=== PATIENT | female | born 1960 | race American Indian/Alaskan Native ===

== ENCOUNTER 2016-05-17 14:58 | Emergency (ER) | payer SELFPAY ==
[2016-05-17 21:11] VITALS: BP 115/81
--- NOTE | 2016-05-17 22:20 | Emergency Department Report ---
HPI - General Chief Complaint: Dental/Oral Time Seen by Provider: 05/17/16 21:52 - HPI HPI: Patient here complaining of pain and left sided facial swelling. She said the pain is 10 out of 10 and then going on for couple days. She says she called dentist and they did not have an appointment for her. She says she has a lot of refilling fell out. She says she had a fever of 101.0 and she's been taken TheraFlu. She is afebrile at present. Denies any nausea vomiting. Denies any cough or chest pain. ED Past Medical Hx - Past Medical History Previous Medical History?: Yes Hx Hypertension: Yes Hx Arthritis: Yes - Surgical History Past Surgical History?: Yes Hx Appendectomy: Yes Additional Surgical History: rotator cuff repair R. shoulder. ectopic . - Family History Family history: hypertension - Social History Smoking Status: Never Smoker Substance Use Type: None - Medications Home Medications: Home Medications Medication Instructions Recorded Confirmed Last Taken Type Naproxen 500 mg PO Q4-6H 01/16/14 01/17/14 Unknown History traMADol [Ultram] 50 mg PO Q6HR PRN 01/16/14 01/16/14 Unknown History Benazepril/Hydrochlorothiazide 1 tab PO DAILY #30 tablet 01/17/14 Unknown Rx [Benazepril-Hctz 20-25 mg] Cyclobenzaprine [Flexeril 10mg] 10 mg PO Q4-6H PRN 01/17/14 01/17/14 Unknown History NIFEdipine [Nifedipine ER] 30 mg PO DAILY #30 tablet.er 01/17/14 Unknown Rx Amoxicillin [Amoxicillin TAB] 875 mg PO BID #20 tablet 05/17/16 Unknown Rx HYDROcodone/APAP 5-325 [Gallion 1 each PO Q6HR PRN #15 tablet 05/17/16 Unknown Rx 5/325] ED Review of Systems ROS: Stated complaint: POSS INFECTED TOOTH/PAIN Other details as noted in HPI Comment: All other systems reviewed and negative Constitutional: denies: chills, fever ENT: dental pain. denies: ear pain, throat pain, congestion Respiratory: no symptoms reported Cardiovascular: denies: chest pain, palpitations, edema, syncope Gastrointestinal: denies: nausea, vomiting Musculoskeletal: denies: back pain, arthralgia Skin: denies: rash Neurological: denies: headache Physical Exam - Physical Exam Vital Signs: Vital Signs 05/17/16 05/17/16 15:16 21:07 Temperature 98.1 F 97.8 F Pulse Rate 90 82 Respiratory 16 20 Rate Blood Pressure 136/86 Blood Pressure 115/81 [Right] O2 Sat by Pulse 97 98 Oximetry General: This is a 55-year-old female well-nourished well-developed in no acute distress. Physical Exam: Head: Normocephalic atraumatic Mouth: Moist, no pharyngeal exudate or erythema. Uvula is midline and oral airway is patent. No gingival enlargement. Multiple dental caries. Positive dental tenderness. Positive left facial swelling. No induration or erythema on face. No peritonsillar abscesses. Positive erythema and swelling left #17,18 and 19. Neck: Supple, no C-spine tenderness, no tracheal deviation. Nontender to palpate. no adenopathy Ears: Bilateral TMs pearly mancia.bilateral EAC without any redness swelling or drainage Eyes: Bilateral pupils equal and reactive to light, bilateral EOM intact. Bilateral sclera and conjunctiva without injection. Normal accommodation Nose: Mucosa moist, normal mucosa maxillary and frontal sinus non-tender to palpate. Lungs: Clear to auscultate bilaterally no rhonchi wheezes or rales. Normal work of breathing extremity; No CCE. +2 pulses. No neurovascular compromise Cardiovascular: S1-S2, regular rate rhythm. No murmurs. Skin: clean Dry and intact no rash no lesions Psych: Normal mood and behavior ED Course Vital Signs 05/17/16 05/17/16 15:16 21:07 Temperature 98.1 F 97.8 F Pulse Rate 90 82 Respiratory 16 20 Rate Blood Pressure 136/86 Blood Pressure 115/81 [Right] O2 Sat by Pulse 97 98 Oximetry - Reevaluation(s) Reevaluation #1: 05/18/16 04:44 Patient had an uneventful ED stay ED Medical Decision Making - Medical Decision Making ED course: Patient with cellulitis and toothache. I discussed with her put her on amoxicillin and pain medication and she will need to follow-up with a dentist in 2-3 days. Patient voiced understanding of discharge instruction and discharged home with prescription for Gallion and amoxicillin. Critical care attestation.: If time is entered above; I have spent that time in minutes in the direct care of this critically ill patient, excluding procedure time. ED Disposition Clinical Impression: Oral cellulitis, Toothache, Dental caries Disposition: DISCHARGED TO HOME OR SELFCARE Is pt being admited?: No Does the pt Need Aspirin: No Condition: Stable Instructions: Cellulitis (ED), Dental Caries (ED), Toothache (ED) Prescriptions: Amoxicillin [Amoxicillin TAB] 875 mg PO BID #20 tablet HYDROcodone/APAP 5-325 [Gallion 5/325] 1 each PO Q6HR PRN #15 tablet PRN Reason: Pain Referrals: [facility] [Outside] - 2-3 Days Forms: Work/School Release Form(ED)
== END 2016-05-17 23:09 | disposition home or self-care (01) ==
LOC: ED 14:58
DX: K12.2 Cellulitis and abscess of mouth (principal); K08.89 Other specified disorders of teeth and supporting structures; K02.9 Dental caries, unspecified; I10 Essential (primary) hypertension; Z90.49 Acquired absence of other specified parts of digestive tract; Z87.39 Personal history of other diseases of the musculoskeletal system and connective tissue
CPT/HCPCS: 99282

== ENCOUNTER 2018-06-29 18:10 | Inpatient (IN) | payer MEDICARE ==
[2018-06-29] MEDS ORDERED: ASPIRIN PO ONE (18:32)
--- NOTE | 2018-06-29 18:33 | Emergency Department Report ---
Chief Complaint: Chest Pain Stated Complaint: CHEST PAIN Time Seen by Provider: 06/29/18 18:28 - HPI History of Present Illness: This is a 57 y.o. female that presents with chest pain radiating to LUE. Patient reports elevated blood pressure x 1 week. PMH of HTN, vertigo, and anemia. States she is doubling BP meds for 1 week but only took one today. Admits to weakness. Denies SOB and palpitations. - ROS Review of Systems: chest pain radiating to LUE - Exam Vital Signs: Vital Signs 06/29/18 18:32 Temperature 98.2 F Pulse Rate 84 Respiratory 16 Rate Blood Pressure 186/84 O2 Sat by Pulse 98 Oximetry MSE screening note: Focused history and physical exam performed. Due to findings the following was ordered: Labs, EKG, & CXR Main ED for further evaluation. ED Disposition for MSE Condition: Stable
[2018-06-29 19:29] LABS: Basophils # (Auto) 0.1 K/mm3 (0.0-0.1); Basophils % (Auto) 1.8 % (0.0-1.8); Eosinophils # (Auto) 0.2 K/mm3 (0.0-0.4); Eosinophils % (Auto) 2.8 % (0.0-4.3); Hematocrit 32.3 % (30.3-42.9); Hemoglobin 10.3 gm/dl (10.1-14.3); Lymphocytes # (Auto) 2.4 K/mm3 (1.2-5.4); Lymphocytes % (Auto) 33.8 % (13.4-35.0); Mean Corpuscular HGB Conc 32 % (30-34); Mean Corpuscular Volume 75 fl (79-97); Monocytes # (Auto) 0.7 K/mm3 (0.0-0.8); Monocytes % (Auto) 9.5 % (0.0-7.3); Platelet Count 513 K/mm3 (140-440); Red Blood Count 4.31 M/mm3 (3.65-5.03); Red Cell Distribution Width 19.2 % (13.2-15.2)
--- NOTE | 2018-06-29 19:49 | XRay Report ---
PROCEDURE: XR CHEST 1V AP HISTORY: Chest Pain FINDINGS: Single frontal view of the chest was acquired and compared to the prior examination of Jorge Alberto mcrae 2017. There is stable cardiomegaly. There is no evidence of congestive heart failure. There is no consolida tive pulmonary infiltrate. IMPRESSION: Stable cardiomegaly This document is electronically signed by Mitchell Bear MD., June 29 2018 07:46:51 PM ET
[2018-06-29 20:07] LABS: BUN/Creatinine Ratio 26; Blood Urea Nitrogen 13 mg/dL (7-17); Calcium 9.1 mg/dL (8.4-10.2); Hemolysis Index 1
--- NOTE | 2018-06-29 23:18 | Emergency Department Report ---
ED Chest Pain HPI - General Chief Complaint: Chest Pain Stated Complaint: CHEST PAIN Time Seen by Provider: 06/29/18 23:18 Source: patient Mode of arrival: Ambulatory Limitations: No Limitations - History of Present Illness Initial Comments: Patient is a 57-year-old female that presents emergency room with complaints of chest pain that started this morning at 9 AM. Patient states the pain is worsening. Patient states the pain is in the center of her chest and radiating to her left neck and left arm. Patient states the pain is a 8 out of 10. He s tates the pain is better with rest and worse with exertion. Patient states she's had elevated blood pressure for the past 2 weeks. Patient states she has not been seeing her doctor regular. Patient is noncompliant with her medications. Patient denies shortness of breath. MD Complaint: chest pain -: Sudden Onset: during rest Pain Location: substernal, left chest Pain Radiation: LUE, neck Severity: severe Severity scale (0 -10): 8 Quality: sharp Consistency: constant Improves With: rest Worsens With: exertion re: denies: nausea, vomting, diaphoresis, dyspnea, sense of impending doom Other Symptoms: denies: cough, fever, syncope, rash, acid taste in mouth, leg swelling, palpitations, burping Treatments Prior to Arrival: none Aspirin use within the Past 7 Days: (0) No - Related Data On Oral Contraceptives: No Home Medications Medication Instructions Recorded Confirmed Last Taken Cyclobenzaprine [Flexeril 10 MG 10 mg PO DAILY 01/17/14 01/18/17 Unknown TAB] Meloxicam [Mobic] 7.5 mg PO QDAY 01/18/17 01/18/17 Unknown Previous Rx's Medication Instructions Recorded Last Taken Type Aspirin [Aspirin BABY CHEW TAB] 81 mg PO QDAY #30 tab.chew 01/20/17 Unknown Rx AtorvaSTATin [Lipitor] 20 mg PO QHS #30 tablet 01/20/17 Unknown Rx Brompheniramine/Pseudoephed/Dm 240 ml PO TID #1 syrup 03/01/18 Unknown Rx [Bromfed Dm Cough Syrup] Meclizine [Antivert] 25 mg PO TID PRN #30 tablet 03/01/18 Unknown Rx Allergies Allergy/AdvReac Type Severity Reaction Status Date / Time No Known Allergies Allergy Unverified 05/17/16 15:18 Heart Score - HEART Score History: Moderately suspicious EKG: Non-specific Age: 45-65 Risk factors: 1-2 risk factors Troponin: < normal limit HEART Score: 4 ED Review of Systems ROS: Stated complaint: CHEST PAIN Other details as noted in HPI Constitutional: denies: chills, fever Eyes: denies: eye pain, eye discharge, vision change ENT: denies: ear pain, throat pain Respiratory: denies: cough, shortness of breath, wheezing Cardiovascular: chest pain. denies: palpitations Endocrine: no symptoms reported Gastrointestinal: denies: abdominal pain, nausea, diarrhea Genitourinary: denies: urgency, dysuria, discharge Musculoskeletal: denies: back pain, joint swelling, arthralgia Skin: denies: rash, lesions Neurological: denies: headache, weakness, paresthesias Psychiatric: denies: anxiety, depression Hematological/Lymphatic: denies: easy bleeding, easy bruising ED Past Medical Hx - Past Medical History Previous Medical History?: Yes Hx Hypertension: Yes Hx Heart Attack/AMI: No Hx Congestive Heart Failure: No Hx Diabetes: No Hx Deep Vein Thrombosis: No Hx Arthritis: Yes Hx Asthma: No Hx COPD: No Hx HIV: No - Surgical History Hx Coronary Stent: No Hx Open Heart Surgery: No Hx Pacemaker: No Hx Internal Defibrillator: No Hx Cholecystectomy: No Hx Appendectomy: Yes Hx Breast Surgery: No Additional Surgical History: rotator cuff repair R. shoulder. ectopic . . misscarriage - Family History Family history: no significant - Social History Smoking Status: Never Smoker Substance Use Type: None - Medications Home Medications: Home Medications Medication Instructions Recorded Confirmed Last Taken Type Cyclobenzaprine [Flexeril 10 MG 10 mg PO DAILY 01/17/14 01/18/17 Unknown History TAB] Meloxicam [Mobic] 7.5 mg PO QDAY 01/18/17 01/18/17 Unknown History Aspirin [Aspirin BABY CHEW TAB] 81 mg PO QDAY #30 tab.chew 01/20/17 Unknown Rx AtorvaSTATin [Lipitor] 20 mg PO QHS #30 tablet 01/20/17 Unknown Rx Brompheniramine/Pseudoephed/Dm 240 ml PO TID #1 syrup 03/01/18 Unknown Rx [Bromfed Dm Cough Syrup] Meclizine [Antivert] 25 mg PO TID PRN #30 tablet 03/01/18 Unknown Rx ED Physical Exam - General Limitations: No Limitations General appearance: alert, in no apparent distress - Head Head exam: Present: atraumatic, normocephalic - Eye Eye exam: Present: normal appearance - ENT ENT exam: Present: mucous membranes moist - Neck Neck exam: Present: normal inspection - Respiratory Respiratory exam: Present: normal lung sounds bilaterally. Absent: respiratory distress, chest wall tenderness - Cardiovascular Cardiovascular Exam: Present: regular rate, normal rhythm. Absent: systolic murmur, diastolic murmur, rubs, gallop - GI/Abdominal GI/Abdominal exam: Present: soft, normal bowel sounds - Extremities Exam Extremities exam: Present: normal inspection - Back Exam Back exam: Present: normal inspection - Neurological Exam Neurological exam: Present: alert, oriented X3 - Psychiatric Psychiatric exam: Present: normal affect, normal mood - Skin Skin exam: Present: warm, dry, intact, normal color. Absent: rash ED Course Vital Signs 06/29/18 06/30/18 18:32 01:00 Temperature 98.2 F 98.2 F Pulse Rate 84 68 Respiratory 16 16 Rate Blood Pressure 186/84 Blood Pressure 144/72 [Right] O2 Sat by Pulse 98 98 Oximetry - Reevaluation(s) Reevaluation #1: Discussed all results with patient. Patient agrees with plan of care and admission. Patient will be admitted to the hospitalist service. She will be given morphine and Lopressor for her chest pain and elevated blood pressure. 06/30/18 00:02 Patient states the pain is improving. Patient will be admitted to the hospitalist service for 06/30/18 01:35 - Consultations Consultation #1: Hospitalist consulted for admission. Hospitalist to admit patient. Hospitalist to assume care patient. Bridge orders placed 06/30/18 00:02 LENORA score - Lenora Score Age > 65: (0) No Aspirin use within the Past 7 Days: (0) No 3 or more CAD Risk Factors: (0) No 2 or more Angina events in past 24 hrs: (1) Yes Known CAD with more than 50% Stenosis: (0) No Elevated Cardiac Markers: (0) No ST Deviation Greater than 0.5mm: (0) No LENORA Score: 1 ED Medical Decision Making - Lab Data Result diagrams: 06/29/18 18:48 06/29/18 18:48 - EKG Data -: EKG Interpreted by Me EKG shows normal: sinus rhythm, axis, intervals, QRS complexes, ST-T waves Rate: normal - Radiology Data Radiology results: report reviewed PROCEDURE: XR CHEST 1V AP HISTORY: Chest Pain FINDINGS: Single frontal view of the chest was acquired and compared to the prior examination of March 01, 2018. There is stable cardiomegaly. There is no evidence of congestive heart failure. There is no consolidative pulmonary infiltrate. IMPRESSION: Stable cardiomegaly - Medical Decision Making Patient is a 57-year-old female that presents emergency room with complaints of chest pain. Patient's initial cardiac workup was negative. Patient's EKG is negative. Patient's chest x-ray is negative for heart or megaly. Patient was admitted to the hospitalist service. Patient agrees with plan of care. - Differential Diagnosis chest pain. ACS. Critical Care Time: Yes Critical care attestation.: If time is entered above; I have spent that time in minutes in the direct care of this critically ill patient, excluding procedure time. Critical Care Time: 35 minutes ED Disposition Clinical Impression: Noncompliance Hypertension Qualifiers: Hypertension type: essential hypertension Qualified Code(s): I10 - Essential (primary) hypertension Chest pain Qualifiers: Chest pain type: unspecified Qualified Code(s): R07.9 - Chest pain, unspecified Disposition: OP ADMIT IP TO THIS HOSP Is pt being admited?: Yes Does the pt Need Aspirin: No Condition: Critical Time of Disposition: 00:06
[2018-06-30] MEDS ORDERED: LOPRESSOR IV ONE ×2 (00:06→00:56)
[2018-06-30] MEDS ORDERED: MORPHINE IV ONE (00:06)
[2018-06-30] MEDS ORDERED: MORPHINE ONE (00:57)
[2018-06-30] MEDS ORDERED: MORPHINE IV PRN (01:19)
[2018-06-30] MEDS ORDERED: ZOFRAN IV PRN (01:19)
[2018-06-30] MEDS ORDERED: TYLENOL PO PRN (01:19)
[2018-06-30] MEDS ORDERED: NITROSTAT SL PRN (01:20)
[2018-06-30] MEDS: NITRO-BID 2% TP SCH ×4 (03:34→14:22)
[2018-06-30 06:35] LABS: Creatine Kinase MB 1.1 ng/mL (0.0-4.0)
[2018-06-30] MEDS ORDERED: LEXISCAN IV ONE ×2 (08:07→08:15)
--- NOTE | 2018-06-30 09:11 | History and Physical Report ---
CHIEF COMPLAINT: Chest pain. HISTORY OF PRESENT ILLNESS: The patient is a 57-year-old female who started complaining about chest pain, which started in the morning and progressively got worse. Pain is in the midsternal precordial area and radiating to the left side of the neck and left arm. The patient said that the pain is better with rest and worse with exertion. The patient denies a history of shortness of breath, denies history of nausea and vomiting and said that there is associated diaphoresis and weakness. PAST MEDICAL HISTORY: Pertinent for hypertension and arthritis and the patient is noncompliant with medication. PAST SURGICAL HISTORY: Pertinent for appendectomy, rotator cuff surgery repair on the right shoulder, ectopic and miscarriage with D and C. MEDICATIONS: The patient is on Flexeril 10 mg by mouth daily, meloxicam 7.5 mg by mouth daily, aspirin 81 mg p.o. daily, atorvastatin 20 mg by mouth at bedtime, brompheniramine/pseudoephedrine or Bromfed DM cough syrup 240 mL p.o. 3 times daily, meclizine or Antivert 25 mg by mouth 3 times daily as needed for vertigo. ALLERGIES: There are no known drug allergies. REVIEW OF SYSTEMS: CONSTITUTIONAL: There is no fever, no chills. Diaphoresis is present. HEENT: There is no headache or sore throat. CARDIOVASCULAR SYSTEM: There is chest pain, but no orthopnea. RESPIRATORY SYSTEM: There is no shortness of breath or cough. GASTROINTESTINAL SYSTEM: There is no nausea, no vomiting, no abdominal pain, diarrhea or constipation. NEUROLOGICAL SYSTEM: There is no numbness, no dizziness, no altered mental status. MUSCULOSKELETAL SYSTEM: There is no joint pain or swelling. DERMATOLOGICAL SYSTEM: There is no skin rash or itching. GENITOURINARY SYSTEM: There is no dysuria, hematuria or flank pain. Rest of system review is normal. PHYSICAL EXAMINATION: GENERAL: At the time of my exam, the patient was found to be alert, oriented x 3 and not in acute distress. VITAL SIGNS: Initial vital signs at the time of presentation showed temperature of 98.2 degrees Fahrenheit, pulse of 84, respirations 16, blood pressure 186/84 which later came down to 144/72, O2 sat of 98% on room air. HEENT: Showed pupils to be equal, round, and reactive to light and accommodating. Extraocular muscles are intact. NECK: Supple with no JVD or carotid bruit. CARDIOVASCULAR SYSTEM: Showed normal first and second heart murmur heard with no gallops. RESPIRATORY SYSTEM: Showed good air entry on both sides of the lungs with no abnormal breath sounds. GASTROINTESTINAL SYSTEM: Showed abdomen to be full, nontender with no organomegaly or rigidity. NEUROLOGICAL: Showed no focal deficit. MUSCULOSKELETAL SYSTEM: Showed no joint swelling. DERMATOLOGICAL SYSTEM: Showed no skin rash. GENITOURINARY SYSTEM: Showing no costovertebral angle tenderness. PERTINENT LABORATORY AND IMAGING STUDIES: The patient had chest x-ray done that shows stable cardiomegaly. The patient's lab results show CBC with normal white count, normal hemoglobin and normal hematocrit with a slightly elevated platelet count of 513,000. CBC differential showed high monocyte count of 9.5. The patient's chemistry was unremarkable. Troponin level came back normal. DIAGNOSIS: Chest pain. PLAN OF CARE: 1. The patient will be admitted to telemetry. 2. The patient will have serial cardiac enzymes involving troponin, total CK, and CK-MB checked q.6 hours x 2 more levels. 3. The patient will remain n.p.o. for Lexiscan stress test this morning. 4. The patient will be on aspirin 325 mg by mouth daily and will be on IV morphine 2 mg every 3 hours as needed for pain and IV Zofran 4 mg every 8 hours as needed for nausea and vomiting. 5. The patient will be on nitro paste half inch to anterior chest wall q.i.d. and Nitrostat 0.4 mg sublingual every 5 minutes as needed for pain. 6. The patient will be on oxygen by nasal cannula at 2 liters per minute. JOB# [id number] OCN/NTS
[2018-06-30] MEDS ORDERED: ASPIRIN PO SCH (10:00)
[2018-06-30 11:18] VITALS: BP 116/68
--- NOTE | 2018-06-30 12:11 | Treadmill Report ---
LEXISCAN STRESS TEST REPORT REASON FOR STUDY: Chest pain. STRESS TEST PROTOCOL: The patient received 0.4 mg of Lexiscan intravenously over 10 seconds. Tc-99m Tetrofosmin was subsequently injected. Baseline EKG, normal sinus rhythm with LVH. Lexiscan EKG, no ischemic changes. No chest pain. No arrhythmias. IMPRESSION: Electrocardiographically negative stress test. Nuclear imaging report to follow. JOB# [id number] AGO/NTS
--- NOTE | 2018-06-30 14:50 | Discharge Summary ---
Providers - Providers Date of Admission: 06/30/18 00:07 Date of discharge: 06/30/18 Attending physician: MARILYN SIERRA Primary care physician: CARLOS RODRIGUEZ Hospitalization Reason for admission: chest pain Condition: Good Pertinent studies: Stress test: fixed small inferoapical defect w/o any significant motion abnormality with preserved Ef. CXR: Stable cardiomegaly Hospital course: Patient is a 57-year-old female that presents emergency room with complaints of chest pain that started in the morning at 9 AM. her initial CE were normal, CXR showed stable cardiomegaly, stress test didnot show any reversible ischemia. Patient was then discharged home in stable condition with outpt followup. Discharge diagnosis: Chest pain, atypical, likely from GERD, negative stress test HLD, on statin Disposition: DC- TO HOME OR SELFCARE Time spent for discharge: 34 minutes Core Measure Documentation - Palliative Care Palliative Care/ Comfort Measures: Not Applicable - Core Measures Any of the following diagnoses?: none Exam - Constitutional Vitals: Temp Pulse Resp BP Pulse Ox 98.0 F 79 18 116/68 100 06/30/18 11:17 06/30/18 11:17 06/30/18 11:17 06/30/18 11:17 06/30/18 11:17 General appearance: Present: no acute distress, well-nourished - EENT Eyes: Present: PERRL ENT: hearing intact, clear oral mucosa - Neck Neck: Present: supple, normal ROM - Respiratory Respiratory effort: normal Respiratory: bilateral: CTA - Cardiovascular Heart Sounds: Present: S1 & S2. Absent: rub, click - Extremities Extremities: pulses symmetrical, No edema Peripheral Pulses: within normal limits - Abdominal General gastrointestinal: Present: soft, non-tender, non-distended, normal bowel sounds - Integumentary Integumentary: Present: clear, warm, dry - Musculoskeletal Musculoskeletal: gait normal, strength equal bilaterally - Psychiatric Psychiatric: appropriate mood/affect, intact judgment & insight - Neurologic Neurologic: CNII-XII intact, moves all extremities Plan Activity: advance as tolerated Weight Bearing Status: Weight Bear as Tolerated Diet: low fat, low salt Follow up with: CARLOS RODRIGUEZ MD [Primary Care Provider] - 7 Days Prescriptions: Pantoprazole [Protonix] 40 mg PO QDAY #30 tablet
[2018-06-30 14:54] LABS: Creatine Kinase MB 1.1 ng/mL (0.0-4.0)
--- NOTE | 2018-06-30 16:08 | Treadmill Report ---
THALLIUM REPORT REASON FOR STUDY: Chest pain. IMAGING PROTOCOL: The patient received 10.7 mCi of technetium-99m Tetrofosmin for rest imaging, and 31.08 mCi of Tc-99m Tetrofosmin for stress imaging. Imaging for all procedures was completed 30-90 minutes following the initial injection of Technetium 99m Tetrofosmin. SPECT imaging in the 180 degree arc was performed in the right anterior oblique projection. Computerized reconstruction of the images was performed for analysis. NUCLEAR IMAGING RESULTS: Technically limited study due to soft tissue attenuation artifact. Normal left ventricular cavity size with no change from stress to rest. Distribution of radionuclide within the left ventricle revealed a small area of photo-induction involving the inferoapical region. The degree of photo-induction is mild. Rest imaging showed partial improvement in this defect. Gated SPECT imaging revealed normal global LV systolic function with no significant wall motion abnormalities. The calculated left ventricular ejection fraction is 69%. IMPRESSION: Technically limited study. Small, partially reversible inferoapical defect. Normal global LV systolic function with no significant wall motion abnormalities. EF 69%. These findings suggest minimal ischemia in the left anterior descending coronary artery territory. A small area of prior infarction in the same territory cannot be excluded. Overall, significant amount of ischemia is not suggested. [facility]# [id number] SHAWN/INNA ANGELES
== END 2018-06-30 15:30 | disposition home or self-care (01) | DRG 392 ==
LOC: ED 18:10 → 4A 06-30 00:07
PROVIDERS: ADMIT Internal Medicine; ATTEND Internal Medicine
DX: K21.9 Gastro-esophageal reflux disease without esophagitis (principal); I10 Essential (primary) hypertension; E78.5 Hyperlipidemia, unspecified; Z79.82 Long term (current) use of aspirin; Z79.899 Other long term (current) drug therapy; Z90.49 Acquired absence of other specified parts of digestive tract; Z91.19 Patient's noncompliance with other medical treatment and regimen
CPT/HCPCS: 36415; 71045; 78452; 80048; 82550; 82553; 84484; 85025; 93005; 93010; 93017; G0378; A9502; J2270; J2785

== ENCOUNTER 2019-07-04 10:08 | Emergency (ER) | payer MEDICARE ==
--- NOTE | 2019-07-04 11:33 | Event Note ---
ED Screening Note Date of service: 07/04/19 Time: 11:31 ED Screening Note: 58 y/o female with generalized weaknessand pain in right shoulder. This initial assessment/diagnostic orders/clinical plan/treatment(s) is/are subject to change based on patients health status, clinical progression and re- assessment by fellow clinical providers in the ED. Further treatment and workup at subsequent clinical providers discretion. Patient/guardian urged not to elope from the ED as their condition may be serious if not clinically assessed and managed. Initial orders include:
[2019-07-04] MEDS ORDERED: ACETAMINOPHEN 325 MG TAB PO ONE (12:28)
--- NOTE | 2019-07-04 13:03 | XRay Report ---
CHEST 2 VIEWS INDICATION / CLINICAL INFORMATION: Weakness. Acute shortness of breath for 6 hours. COMPARISON: One view of the chest from 06/29/2018. FINDINGS: SUPPORT DEVICES: None. HEART / MEDIASTINUM: Stable. LUNGS / PLEURA: Left basilar opacities likely represent atelectasis/scarring. The lungs are otherwise clear. No significant pleural effusion. No pneumothorax. ADDITIONAL FINDINGS: No significant additional findings. IMPRESSION: 1. No acute abnormality of the chest. 2. Additional findings as above. Signer Name: Yehuda Prater MD Signed: 07/04/2019 12:59 PM Workstation Name: [id number]
[2019-07-04 14:08] LABS: Hematocrit 33.1 % (30.3-42.9); Hemoglobin 10.5 gm/dl (10.1-14.3); Mean Corpuscular HGB Conc 32 % (30-34); Mean Corpuscular Volume 78 fl (79-97); Platelet Count 295 K/mm3 (140-440); Red Blood Count 4.26 M/mm3 (3.65-5.03); Red Cell Distribution Width 18.3 % (13.2-15.2)
--- NOTE | 2019-07-04 14:13 | Emergency Department Report ---
ED General Adult HPI - General Chief complaint: Weakness Stated complaint: WEAK,LIGHT HEADED/HBP/N Time Seen by Provider: 07/04/19 11:31 Source: patient, RN notes reviewed, old records reviewed Mode of arrival: Ambulatory Limitations: No Limitations - History of Present Illness Initial comments: The patient is a 58-year-old female. She has a history of hypertension, arthritis, chronic pain syndrome, hyperlipidemia, GERD, had a nuclear stress test at this hospital June 2018, which was essentially negative for significant ischemic findings. She had multiple negative troponins. Today, the patient presents to the ER with a complaint of lightheadedness, shortness of breath, right-sided shoulder pain, nausea, malaise and fatigue. Her symptoms have started within the past 24 hours. The right shoulder pain is throbbing and aching, does not radiate anywhere, and is chronic. She has known chronic arthritis. She denies chest pain. She cannot describe her shortness of breath. She is not sure if it is exertional or not. She denies vomiting, diaphoresis, DVT and pulmonary embolism risk factors. There is no complaint of headache, neck pain, chest pain, abdominal pain, irritative/obstructive urinary symptoms. She also endorses nonspecific right-sided flank discomfort. There is no focal extremity weakness and/or numbness. She ran out of her antihypertensive medication. -: Gradual, days(s) Location: back Severity scale (0 -10): 7 Consistency: constant, other Improves with: other Worsens with: other Associated Symptoms: other - Related Data Home Medications Medication Instructions Recorded Confirmed Last Taken Meloxicam [Mobic] 7.5 mg PO QDAY 01/18/17 06/30/18 Unknown Previous Rx's Medication Instructions Recorded Last Taken Type Aspirin [Aspirin BABY CHEW TAB] 81 mg PO QDAY #30 tab.chew 01/20/17 Unknown Rx AtorvaSTATin [Lipitor] 20 mg PO QHS #30 tablet 01/20/17 Unknown Rx Meclizine [Antivert] 25 mg PO TID PRN #30 tablet 03/01/18 Unknown Rx Pantoprazole [Protonix] 40 mg PO QDAY #30 tablet 06/30/18 Unknown Rx Amlodipine Besylate [Norvasc] 5 mg PO QDAY #30 tablet 07/04/19 Unknown Rx Aspirin [Aspirin BABY CHEW TAB] 162 mg PO QDAY #60 tab.chew 07/04/19 Unknown Rx Allergies Allergy/AdvReac Type Severity Reaction Status Date / Time No Known Allergies Allergy Unverified 05/17/16 15:18 ED Review of Systems ROS: Stated complaint: WEAK,LIGHT HEADED/HBP/N Other details as noted in HPI Constitutional: malaise. denies: fever Eyes: denies: eye discharge ENT: denies: congestion Respiratory: shortness of breath. denies: wheezing Cardiovascular: other (Near syncope). denies: chest pain Gastrointestinal: nausea. denies: vomiting Genitourinary: denies: dysuria Musculoskeletal: back pain Skin: denies: lesions Neurological: weakness Psychiatric: as per HPI Hematological/Lymphatic: as per HPI ED Past Medical Hx - Past Medical History Hx Hypertension: Yes Hx Heart Attack/AMI: No Hx Congestive Heart Failure: No Hx Diabetes: No Hx Deep Vein Thrombosis: No Hx Arthritis: Yes Hx Asthma: No Hx COPD: No Hx HIV: No - Surgical History Hx Coronary Stent: No Hx Open Heart Surgery: No Hx Pacemaker: No Hx Internal Defibrillator: No Hx Cholecystectomy: No Hx Appendectomy: Yes Hx Breast Surgery: No Additional Surgical History: rotator cuff repair R. shoulder. ectopic . . misscarriage - Social History Smoking Status: Never Smoker Substance Use Type: None - Medications Home Medications: Home Medications Medication Instructions Recorded Confirmed Last Taken Type Meloxicam [Mobic] 7.5 mg PO QDAY 01/18/17 06/30/18 Unknown History Aspirin [Aspirin BABY CHEW TAB] 81 mg PO QDAY #30 tab.chew 01/20/17 06/30/18 Unknown Rx AtorvaSTATin [Lipitor] 20 mg PO QHS #30 tablet 01/20/17 06/30/18 Unknown Rx Meclizine [Antivert] 25 mg PO TID PRN #30 tablet 03/01/18 06/30/18 Unknown Rx Pantoprazole [Protonix] 40 mg PO QDAY #30 tablet 06/30/18 Unknown Rx Amlodipine Besylate [Norvasc] 5 mg PO QDAY #30 tablet 07/04/19 Unknown Rx Aspirin [Aspirin BABY CHEW TAB] 162 mg PO QDAY #60 tab.chew 07/04/19 Unknown Rx ED Physical Exam - General Limitations: No Limitations General appearance: alert, in no apparent distress - Head Head exam: Present: atraumatic, normocephalic - Eye Eye exam: Present: normal appearance, PERRL, EOMI. Absent: nystagmus - ENT ENT exam: Present: normal exam, normal orophraynx, mucous membranes moist, normal external ear exam - Neck Neck exam: Present: normal inspection, full ROM. Absent: tenderness, meningismus - Respiratory Respiratory exam: Present: normal lung sounds bilaterally. Absent: respiratory distress - Cardiovascular Cardiovascular Exam: Present: regular rate, normal rhythm, normal heart sounds. Absent: bradycardia, tachycardia, irregular rhythm, systolic murmur, diastolic murmur, rubs, gallop - GI/Abdominal GI/Abdominal exam: Present: soft, normal bowel sounds. Absent: distended, tenderness, guarding, rebound, rigid, pulsatile mass - Extremities Exam Extremities exam: Present: normal inspection, full ROM, tenderness (There is reproducible right shoulder tenderness. There is no redness, pus or streaking. Full active and passive range of motion noted in the right shoulder), other (2+ pulses noted in the bilateral upper and lower extremities. There is no palpable cord. negative Homans sign. Muscular compartments are soft. The pelvis is stable.). Absent: pedal edema, calf tenderness - Back Exam Back exam: Present: normal inspection, full ROM. Absent: tenderness, CVA tenderness (R), CVA tenderness (L), paraspinal tenderness, vertebral tenderness - Neurological Exam Neurological exam: Present: alert, oriented X3, other (There is no facial droop. The tongue is midline. Extraocular movements are intact bilaterally. There is 5 out of 5 strength in bilateral upper and lower extremities. Sensation is intact to light touch bilateral upper and lower extremities. There is no past- pointing. There is no pronator drift. There is normal bmew-eo-ncel.). Absent: motor sensory deficit - Psychiatric Psychiatric exam: Present: normal affect, normal mood - Skin Skin exam: Present: warm, dry, intact, normal color. Absent: rash ED Course Vital Signs 07/04/19 07/04/19 07/04/19 10:31 11:26 12:30 Temperature 99.5 F 99.5 F Pulse Rate 85 83 71 Respiratory 20 20 19 Rate Blood Pressure 195/94 195/94 203/96 Blood Pressure [Left] O2 Sat by Pulse 97 97 100 Oximetry 07/04/19 07/04/19 07/04/19 13:10 13:13 13:16 Temperature Pulse Rate 61 73 75 Respiratory 14 17 13 Rate Blood Pressure 173/66 196/88 Blood Pressure 196/88 [Left] O2 Sat by Pulse 99 99 100 Oximetry 07/04/19 07/04/19 07/04/19 13:30 13:46 14:00 Temperature Pulse Rate 69 64 59 L Respiratory 13 16 15 Rate Blood Pressure 177/87 169/82 185/92 Blood Pressure [Left] O2 Sat by Pulse 100 100 100 Oximetry 07/04/19 07/04/19 07/04/19 14:16 14:30 14:46 Temperature Pulse Rate 60 71 86 Respiratory 19 18 13 Rate Blood Pressure 173/91 166/84 171/88 Blood Pressure [Left] O2 Sat by Pulse 100 99 98 Oximetry 07/04/19 07/04/19 07/04/19 15:00 15:23 15:30 Temperature Pulse Rate 61 147 H 63 Respiratory 18 10 L Rate Blood Pressure 171/88 147/74 164/83 Blood Pressure [Left] O2 Sat by Pulse 98 100 Oximetry 07/04/19 07/04/19 07/04/19 15:45 16:00 16:15 Temperature Pulse Rate Respiratory Rate Blood Pressure 162/84 165/91 155/79 Blood Pressure [Left] O2 Sat by Pulse 100 100 99 Oximetry 07/04/19 07/04/19 07/04/19 16:30 16:45 17:00 Temperature Pulse Rate 62 66 Respiratory 22 20 Rate Blood Pressure 155/79 147/74 138/71 Blood Pressure [Left] O2 Sat by Pulse 98 100 100 Oximetry 07/04/19 17:12 Temperature Pulse Rate 63 Respiratory 16 Rate Blood Pressure Blood Pressure 138/71 [Left] O2 Sat by Pulse 99 Oximetry - Reevaluation(s) Reevaluation #1: 07/04/19 15:04 Differential diagnosis, including but not limited to: Orthostasis, vagal event, structural cardiac disease, pulmonary embolism, shoulder arthritis, acute coronary syndrome, viral syndrome Assessment and plan: 58-year-old female, not currently tachypneic, tachycardic or hypoxic, reports no pulmonary embolism or DVT risk factors, low risk by Wells criteria, EKG appears to be unchanged from prior, d-dimer is negative, initial screening laboratory studies unremarkable. At the moment, she is resting comfortably in her stretcher, playing on her cellular phone, and in no acute distress. Repeat troponin, repeat EKG pending. We will treat her symptoms. Reevaluation #2: 07/04/19 15:05 X-ray the chest is unremarkable, unchanged from prior x-ray, furthermore, the patient does not have any pulmonary findings. Reevaluation #3: 07/04/19 15:06 care will be transferred to Dr Jj Mitchell to follow up on ua, troponin repeat ekg and vitals If no acute abnormalities noted, would consider the patient medically suitable to follow-up as an outpatient. Reevaluation #4: 07/04/19 15:12 Patient resting comfortably on her stretcher, and in no acute distress, heart rate 65 bpm, blood pressure 149/75, patient noted to be playing Candy crush on her cellular phone ED Medical Decision Making - Lab Data Result diagrams: 07/04/19 13:47 07/04/19 13:47 Vital Signs 07/04/19 07/04/19 11:26 13:13 Temperature 99.5 F Pulse Rate 83 73 Respiratory 20 17 Rate Blood Pressure 195/94 Blood Pressure 196/88 [Left] O2 Sat by Pulse 97 99 Oximetry Lab Results 07/04/19 07/04/19 07/04/19 Range/Units 13:47 13:47 13:47 WBC 4.1 L (4.5-11.0) K/mm3 RBC 4.26 (3.65-5.03) M/mm3 Hgb 10.5 (10.1-14.3) gm/dl Hct 33.1 (30.3-42.9) % MCV 78 L (79-97) fl MCH 25 L (28-32) pg MCHC 32 (30-34) % RDW 18.3 H (13.2-15.2) % Plt Count 295 (140-440) K/mm3 [place] % ([employer]) T[employer] Installer PT 12.7 (12.2-14.9) Sec. INR 0.94 (0.87-1.13) D-Dimer 157.71 (0-234) ng/mlDDU Sodium 137 (137-145) mmol/L Potassium 4.2 (3.6-5.0) mmol/L Chloride 100.8 (98-107) mmol/L Carbon Dioxide 23 (22-30) mmol/L Anion Gap 17 mmol/L BUN 13 (7-17) mg/dL Creatinine 0.6 L (0.7-1.2) mg/dL Estimated GFR > 60 ml/min BUN/Creatinine Ratio 22 % Glucose 93 (65-100) mg/dL Calcium 9.3 (8.4-10.2) mg/dL Magnesium 2.20 (1.7-2.3) mg/dL Total Bilirubin < 0.20 (0.1-1.2) mg/dL AST 19 (5-40) units/L ALT 10 (7-56) units/L Alkaline Phosphatase 91 (35-129) units/L Total Creatine Kinase 67 (30-135) units/L CK-MB (CK-2) < 1.0 (0.0-4.0) ng/mL Troponin T < 0.010 (0.00-0.029) ng/mL Total Protein 6.9 (6.3-8.2) g/dL Albumin 4.1 (3.9-5) g/dL Albumin/Globulin Ratio 1.5 % Lipase 59 (13-60) units/L - EKG Data -: EKG Interpreted by Wy EKG shows normal: sinus rhythm Rate: normal - EKG Data 07/04/19 15:05 The EKG today is unchanged from prior EKG. She has a sinus rate of 61 bpm, normal axis, QTC within normal limits, the EKG is unchanged from prior EKG, it is not a STEMI - Radiology Data Radiology results: report reviewed, image reviewed Print Report Referring Physician: GERA CHANEL Patient Name: JESS ROSAS Date of : 1960 Sex: Female Report Date: 2019-07-04 Report Status: Finalized Findings [facility] [address] [place] [address] XRay Report Signed Patient: JESS ROSAS MR#: [id number] : 1960 Acct:[id number] Age/Sex: 58 / F ADM Date: 07/04/19 Loc: ED Attending Dr: Order ing Physician: GERA CHANEL MD Date of Service: 07/04/19 Procedure(s): XR chest routine 2V Accession Number(s): [id number] cc: GERA CHANEL MD Fluoro Time In Minutes: CHEST 2 VIEWS INDICATION / CLINICAL INFORMATION: Weakness. Acute shortness of breath for 6 hours. COMPARISON: One view of the chest from 06/29/2018. FINDINGS: SUPPORT DEVICES: None. HEART / MEDIASTINUM: Stable. LUNGS / PLEURA: Left basilar opacities likely represent atelectasis/scarring. The lungs are otherwise clear. No significant pleural effusion. No pneumothorax. ADDITIONAL FINDINGS: No significant additional findings. IMPRESSION: 1. No acute abnormality of the chest. 2. Additional findings as above. Signer Name: Yehuda Prater MD Signed: 07/04/2019 12:59 PM Workstation Name: [id number] Transcribed By: [place] Dictated By: Yehuda Prater MD Electronically Authenticated By: Yehuda Prater MD Signed Date/Time: 07/04/19 1259 DD/ 1257 Critical care attestation.: If time is entered above; I have spent that time in minutes in the direct care of this critically ill patient, excluding procedure time. ED Disposition Clinical Impression: Elevated blood pressure reading, Lightheadedness, History of dyspnea, Chronic right shoulder pain Disposition: DC-01 TO HOME OR SELFCARE Is pt being admited?: No Does the pt Need Aspirin: No Condition: Stable Additional Instructions: Take the medications as prescribed and directed. Make certain to drink at least 3 to 4 cups of water per day. Avoid consumption of alcohol and sedating medications. Recommend that patient follow-up with a primary care doctor or gas golf cart repairer within the next 5 to 7 days. Please return to the emergency room right away with new, worsened or different symptoms, or symptoms not present on the initial emergency room evaluation. Please note that patient was found to have high blood pressure while here in the emergency room. Long-term complications of hypertension and elevated blood pressure include stroke, heart attack, disability, paralysis, loss of quality of life. Therefore, it is very important to control blood pressure through diet, exercise, physical activity, and medications as prescribed. Prescriptions: Aspirin [Aspirin BABY CHEW TAB] 162 mg PO QDAY #60 tab.chew Amlodipine Besylate [Norvasc] 5 mg PO QDAY #30 tablet Referrals: CARLOS RODRIGUEZ MD [Staff Physician] - 7-10 days [facility] [Provider Group] - 7-10 days
[2019-07-04 14:27] LABS: INR 0.94 (0.87-1.13)
[2019-07-04 14:32] LABS: Creatine Kinase MB < 1.0 ng/mL (0.0-4.0)
[2019-07-04 14:33] LABS: Alanine Aminotransferase 10 units/L (7-56); Albumin 4.1 g/dL (3.9-5); BUN/Creatinine Ratio 22; Blood Urea Nitrogen 13 mg/dL (7-17); Calcium 9.3 mg/dL (8.4-10.2); Hemolysis Index 0
[2019-07-04] MEDS ORDERED: amLODIPine 5 MG TAB PO ONE (14:34)
[2019-07-04] MEDS ORDERED: IBUPROFEN 600 MG TAB PO ONE (14:34)
[2019-07-04 15:01] LABS: Basophils % (Manual) 0 % (0.0-1.8); Platelet Estimate Consistent w Auto; Total Cells Counted 100
[2019-07-04 15:55] LABS: Bilirubin,Urine NEG (Negative); Blood,Urine NEG (Negative); Color,Urine Yellow (Yellow); Mucus,Urine FEW /HPF; Urobilinogen,Urine < 2.0 mg/dL (<2.0)
[2019-07-04 17:06] VITALS: BP 138/71
== END 2019-07-04 17:12 | disposition home or self-care (01) ==
LOC: ED 10:08
DX: R42 Dizziness and giddiness (principal); M25.511 Pain in right shoulder; G89.29 Other chronic pain; R06.00 Dyspnea, unspecified; I10 Essential (primary) hypertension; M19.91 Primary osteoarthritis, unspecified site; Z98.890 Other specified postprocedural states; Z90.49 Acquired absence of other specified parts of digestive tract; Z79.899 Other long term (current) drug therapy
CPT/HCPCS: 36415; 71046; 80053; 81001; 82550; 82553; 83690; 83735; 84443; 84484; 85007; 85025; 85379; 85610; 93005; 93010

== ENCOUNTER 2020-11-30 17:57 | Emergency (ER) | payer MEDICARE ==
[2020-11-30 18:01] VITALS: BP 174/88
== END 2020-11-30 22:00 | disposition left against medical advice (07) ==
LOC: ED 17:57
DX: R06.02 Shortness of breath (principal); Z53.21 Procedure and treatment not carried out due to patient leaving prior to being seen by health care provider

== ENCOUNTER 2021-07-08 09:11 | Emergency (ER) | payer MEDICARE ==
[2021-07-08] MEDS ORDERED: ASPIRIN 325 MG TAB PO ONE (09:28)
--- NOTE | 2021-07-08 09:30 | Event Note ---
ED Screening Note Date of service: 07/08/21 Time: 09:28 ED Screening Note: Pleasant 58-year-old female presents emerged department chief complaint of left- sided chest pain that has been ongoing since last night. She describes it as pressure reports right sided arm pain. She denies any rating pain. She has past medical history hypertension, hyperlipidemia and diabetes. She does report family history mother and father with previous CAD. This initial assessment/diagnostic orders/clinical plan/treatment(s) is/are subject to change based on patients health status, clinical progression and re- assessment by fellow clinical providers in the ED. Further treatment and workup at subsequent clinical providers discretion. Patient/guardian urged not to elope from the ED as their condition may be serious if not clinically assessed and managed. Initial orders include: CBC, CMP, troponin x2, chest x-ray, EKG
--- NOTE | 2021-07-08 09:41 | Emergency Department Report ---
ED Chest Pain HPI - General Chief Complaint: Chest Pain Stated Complaint: CHEST PAIN LIGHT HEADED Time Seen by Provider: 07/08/21 09:40 Source: patient Mode of arrival: Ambulatory Limitations: No Limitations - History of Present Illness Initial Comments: This pleasant 58-year-old female presents emerged department chief complaint of left-sided chest pain, right arm pain and lightheadedness that started early last night. She reports the pain is aggravated by palpation and movement. She denies any alleviating factors other than immobility. She has past medical history hypertension. She does have family history of her maternal grandfather having heart attack in his late 50s. She denies any history of diabetes, hypertension, tobacco use, thromboembolic disease. She denies associated fever, chills, night sweats, headache, dizziness, blurry vision, nausea,, diarrhea, weakness or any other associated symptoms. She denies any exertional symptoms. Severity scale (0 -10): 9 - Related Data Home Medications Medication Instructions Recorded Confirmed Last Taken Meloxicam [Mobic] 7.5 mg PO QDAY 01/18/17 06/30/18 Unknown Previous Rx's Medication Instructions Recorded Last Taken Type Aspirin [Aspirin BABY CHEW TAB] 81 mg PO QDAY #30 tab.chew 01/20/17 Unknown Rx AtorvaSTATin [Lipitor] 20 mg PO QHS #30 tablet 01/20/17 Unknown Rx Meclizine [Antivert] 25 mg PO TID PRN #30 tablet 03/01/18 Unknown Rx Pantoprazole [Protonix] 40 mg PO QDAY #30 tablet 06/30/18 Unknown Rx Amlodipine Besylate [Norvasc] 5 mg PO QDAY #30 tablet 07/04/19 Unknown Rx Aspirin [Aspirin BABY CHEW TAB] 162 mg PO QDAY #60 tab.chew 07/04/19 Unknown Rx Allergies Allergy/AdvReac Type Severity Reaction Status Date / Time No Known Allergies Allergy Unverified 05/17/16 15:18 Heart Score - HEART Score History: Slightly suspicious EKG: Normal Age: 45-65 Risk factors: 1-2 risk factors Troponin: < normal limit HEART Score: 2 - EKG Read Time Time EKG Completed: 09:26 EKG Read Time: 09:33 ED Review of Systems ROS: Stated complaint: CHEST PAIN LIGHT HEADED Other details as noted in HPI Comment: All other systems reviewed and negative Constitutional: denies: chills, fever Eyes: denies: eye pain, eye discharge, vision change ENT: denies: ear pain, throat pain Respiratory: denies: cough, shortness of breath, wheezing Cardiovascular: as per HPI, chest pain. denies: palpitations Endocrine: no symptoms reported Gastrointestinal: denies: abdominal pain, nausea, diarrhea Genitourinary: denies: urgency, dysuria, discharge Musculoskeletal: denies: back pain, joint swelling, arthralgia Skin: denies: rash, lesions Neurological: denies: headache, weakness, paresthesias Psychiatric: denies: anxiety, depression Hematological/Lymphatic: denies: easy bleeding, easy bruising ED Past Medical Hx - Past Medical History Hx Hypertension: Yes Hx Heart Attack/AMI: No Hx Congestive Heart Failure: No Hx Diabetes: No Hx Deep Vein Thrombosis: No Hx Arthritis: Yes Hx Asthma: Yes Hx COPD: No Hx HIV: No - Surgical History Hx Coronary Stent: No Hx Open Heart Surgery: No Hx Pacemaker: No Hx Internal Defibrillator: No Hx Cholecystectomy: No Hx Appendectomy: Yes Hx Breast Surgery: No Additional Surgical History: rotator cuff repair R. shoulder. ectopic . . misscarriage - Social History Smoking Status: Never Smoker Substance Use Type: None - Medications Home Medications: Home Medications Medication Instructions Recorded Confirmed Last Taken Type Meloxicam [Mobic] 7.5 mg PO QDAY 01/18/17 06/30/18 Unknown History Aspirin [Aspirin BABY CHEW TAB] 81 mg PO QDAY #30 tab.chew 01/20/17 06/30/18 Unknown Rx AtorvaSTATin [Lipitor] 20 mg PO QHS #30 tablet 01/20/17 06/30/18 Unknown Rx Meclizine [Antivert] 25 mg PO TID PRN #30 tablet 03/01/18 06/30/18 Unknown Rx Pantoprazole [Protonix] 40 mg PO QDAY #30 tablet 06/30/18 Unknown Rx Amlodipine Besylate [Norvasc] 5 mg PO QDAY #30 tablet 07/04/19 Unknown Rx Aspirin [Aspirin BABY CHEW TAB] 162 mg PO QDAY #60 tab.chew 07/04/19 Unknown Rx ED Physical Exam - General Limitations: No Limitations General appearance: alert, in no apparent distress - Head Head exam: Present: atraumatic, normocephalic - Eye Eye exam: Present: normal appearance, PERRL, EOMI Pupils: Present: normal accommodation - ENT ENT exam: Present: normal exam, normal orophraynx, mucous membranes moist - Neck Neck exam: Present: normal inspection, full ROM. Absent: tenderness, meningismus - Respiratory Respiratory exam: Present: normal lung sounds bilaterally, chest wall tenderness (Tenderness to left side chest wall). Absent: respiratory distress, wheezes, rales, rhonchi, stridor - Cardiovascular Cardiovascular Exam: Present: regular rate, normal rhythm. Absent: systolic murmur, diastolic murmur, rubs, gallop - GI/Abdominal GI/Abdominal exam: Present: soft, normal bowel sounds. Absent: distended, tenderness, guarding, rebound, rigid - Extremities Exam Extremities exam: Present: normal inspection, full ROM, normal capillary refill. Absent: tenderness, calf tenderness (No posterior calf tenderness, negative Homans' sign bilaterally.) - Back Exam Back exam: Present: normal inspection, full ROM. Absent: tenderness, CVA tenderness (R) - Neurological Exam Neurological exam: Present: alert, oriented X3 - Psychiatric Psychiatric exam: Present: normal affect, normal mood - Skin Skin exam: Present: warm, dry, intact, normal color. Absent: rash ED Course Vital Signs 07/08/21 09:22 Temperature 97.9 F Pulse Rate 72 Respiratory 18 Rate Blood Pressure 198/88 [Right] O2 Sat by Pulse 99 Oximetry MANUEL score - Manuel Score Age > 65: (0) No Aspirin use within the Past 7 Days: (0) No 3 or more CAD Risk Factors: (0) No 2 or more Angina events in past 24 hrs: (1) Yes Known CAD with more than 50% Stenosis: (0) No Elevated Cardiac Markers: (0) No ST Deviation Greater than 0.5mm: (0) No MANUEL Score: 1 ED Medical Decision Making - Lab Data Result diagrams: 07/08/21 10:14 07/08/21 10:14 Lab Results 07/08/21 07/08/21 07/08/21 Range/Units 10:14 10:14 10:14 WBC 6.1 (4.5-11.0) K/mm3 RBC 4.70 (3.65-5.03) M/mm3 Hgb 10.9 (10.1-14.3) gm/dl Hct 35.5 (30.3-42.9) % MCV 76 L (79-97) fl MCH 23 L (28-32) pg MCHC 31 (30-34) % RDW 19.7 H (13.2-15.2) % Plt Count 497 H (140-440) K/mm3 Lymph % (Auto) 34.0 (13.4-35.0) % Swift % (Auto) 9.6 H (0.0-7.3) % Eos % (Auto) 4.8 H (0.0-4.3) % Baso % (Auto) 1.7 (0.0-1.8) % Lymph # (Auto) 2.1 (1.2-5.4) K/mm3 Swift # (Auto) 0.6 (0.0-0.8) K/mm3 Eos # (Auto) 0.3 (0.0-0.4) K/mm3 Baso # (Auto) 0.1 (0.0-0.1) K/mm3 Seg Neutrophils % 49.9 (40.0-70.0) % Seg Neutrophils # 3.0 (1.8-7.7) K/mm3 PT 12.7 (12.2-14.9) Sec. INR 0.87 (0.87-1.13) APTT 37.4 H (24.2-36.6) Sec. Sodium 142 (137-145) mmol/L Potassium 5.1 H (3.6-5.0) mmol/L Chloride 104.2 (98-107) mmol/L Carbon Dioxide 24 (22-30) mmol/L Anion Gap 19 mmol/L BUN 13 (7-17) mg/dL Creatinine 0.6 (0.6-1.2) mg/dL Estimated GFR > 60 ml/min BUN/Creatinine Ratio 22 % Glucose 94 (65-100) mg/dL Calcium 9.4 (8.4-10.2) mg/dL Troponin T < 0.010 (0.00-0.029) ng/mL 07/08/21 Range/Units 12:51 WBC (4.5-11.0) K/mm3 RBC (3.65-5.03) M/mm3 Hgb (10.1-14.3) gm/dl Hct (30.3-42.9) % MCV (79-97) fl MCH (28-32) pg MCHC (30-34) % RDW (13.2-15.2) % Plt Count (140-440) K/mm3 Lymph % (Auto) (13.4-35.0) % Swift % (Auto) (0.0-7.3) % Eos % (Auto) (0.0-4.3) % Baso % (Auto) (0.0-1.8) % Lymph # (Auto) (1.2-5.4) K/mm3 Swift # (Auto) (0.0-0.8) K/mm3 Eos # (Auto) (0.0-0.4) K/mm3 Baso # (Auto) (0.0-0.1) K/mm3 Seg Neutrophils % (40.0-70.0) % Seg Neutrophils # (1.8-7.7) K/mm3 PT (12.2-14.9) Sec. INR (0.87-1.13) APTT (24.2-36.6) Sec. Sodium (137-145) mmol/L Potassium (3.6-5.0) mmol/L Chloride (98-107) mmol/L Carbon Dioxide (22-30) mmol/L Anion Gap mmol/L BUN (7-17) mg/dL Creatinine (0.6-1.2) mg/dL Estimated GFR ml/min BUN/Creatinine Ratio % Glucose (65-100) mg/dL Calcium (8.4-10.2) mg/dL Troponin T < 0.010 (0.00-0.029) ng/mL - EKG Data EKG shows normal: sinus rhythm Rate: normal - EKG Data Interpretation: no acute changes (Normal sinus rhythm with a ventricular rate of 61 bpm, no acute ST or T wave normalities, no STEMI, normal axis, normal intervals) - Radiology Data Radiology results: report reviewed, image reviewed CHEST 2 VIEWS INDICATION: Chest Pain. COMPARISON: 07/04/2019 FINDINGS: SUPPORT DEVICES: None. HEART: Within normal limits. LUNGS/PLEURA: No acute air space or interstitial disease. No pneumothorax. ADDITIONAL FINDINGS: None. IMPRESSION: 1. No acute findings. Signer Name: Santo Coronado MD Signed: 07/08/2021 9:52 AM Workstation Name: [id number] Transcribed By: LEODAN Dictated By: Santo Coronado MD Electronically Authenticated By: Santo Coronado MD Signed Date/Time: 07/08/21 0952 - Medical Decision Making Patient nontoxic no acute distress. Heart score is low and the patient's troponin x2 and EKG were unremarkable. Patient's chest pain is reproducible on exam. She has a low risk by Wells criteria no clinical evidence of DVT making this unlikely. She has no widening of the mediastinum, tearing or ripping pain to the back and normal equal radial pulses making my suspicion for an acute aortic dissection low at this time. She had no signs of pneumonia or any other acute findings on chest x-ray. No pneumothorax. 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 She verbalized understand the diagnosis, treatment and follow-up instructions and all of her questions were answered. Patient's pain resolved prior to discharge. - Differential Diagnosis ACS, PE, chest wall pain Critical care attestation.: If time is entered above; I have spent that time in minutes in the direct care of this critically ill patient, excluding procedure time. ED Disposition Clinical Impression: Chest pain Qualifiers: Chest pain type: unspecified Qualified Code(s): R07.9 - Chest pain, unspecified Disposition: 01 HOME / SELF CARE / HOMELESS Is pt being admited?: No Condition: Stable Instructions: Nonspecific Chest Pain, Adult [facility] [Other] - 3-5 Days Forms: Work/School Release Form(ED) Time of Disposition: 14:36
--- NOTE | 2021-07-08 09:57 | XRay Report ---
CHEST 2 VIEWS INDICATION: Chest Pain. COMPARISON: 07/04/2019 FINDINGS: SUPPORT DEVICES: None. HEART: Within normal limits. LUNGS/PLEURA: No acute air space or interstitial disease. No pneumothorax. ADDITIONAL FINDINGS: None. IMPRESSION: 1. No acute findings. Signer Name: Santo Coronado MD Signed: 07/08/2021 9:52 AM Workstation Name: [id number]
[2021-07-08 10:46] LABS: Basophils # (Auto) 0.1 K/mm3 (0.0-0.1); Basophils % (Auto) 1.7 % (0.0-1.8); Eosinophils # (Auto) 0.3 K/mm3 (0.0-0.4); Eosinophils % (Auto) 4.8 % (0.0-4.3); Hematocrit 35.5 % (30.3-42.9); Hemoglobin 10.9 gm/dl (10.1-14.3); Lymphocytes # (Auto) 2.1 K/mm3 (1.2-5.4); Mean Corpuscular HGB Conc 31 % (30-34); Mean Corpuscular Volume 76 fl (79-97); Monocytes # (Auto) 0.6 K/mm3 (0.0-0.8); Monocytes % (Auto) 9.6 % (0.0-7.3); Platelet Count 497 K/mm3 (140-440); Red Cell Distribution Width 19.7 % (13.2-15.2)
[2021-07-08 10:57] LABS: INR 0.87 (0.87-1.13)
[2021-07-08 10:58] LABS: Partial Thromboplastin Time 37.4 Sec. (24.2-36.6)
[2021-07-08 11:09] LABS: BUN/Creatinine Ratio 22; Blood Urea Nitrogen 13 mg/dL (7-17); Calcium 9.4 mg/dL (8.4-10.2); Hemolysis Index 48
[2021-07-08] MEDS ORDERED: KETOROLAC 30 MG/1 ML INJ IM ONE (11:47)
[2021-07-08 14:56] VITALS: BP 186/80
--- NOTE | 2021-07-09 19:20 | Electrocardiograph Report ---
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
== END 2021-07-08 14:56 | disposition home or self-care (01) ==
LOC: ED 09:11
DX: R07.9 Chest pain, unspecified (principal); I10 Essential (primary) hypertension
CPT/HCPCS: 36415; 71046; 80048; 84484; 85025; 85610; 85730; 93005; 96372; 99284; J1885